=== PATIENT | female | born 1940 | race Caucasian/White ===

== ENCOUNTER 2018-04-01 08:53 | Inpatient (IN) | payer MEDICARE, OTHER ==
[~2018-04-01] VITALS: Ht 162.6 cm; Wt 47.2 kg
[~2018-04-01 08:53] MED LIST: ASPIR 8181 MG PO; B-12500 MCG PO; DILTIAZEM 24HR120 M2 PO; FOLTX TABLET1 EAC1 PO; GLUCOSAMINE &1 EAC1 PO; NOHOMEMEDICATIONS; TYLENOL325 MG PO; VITAMIN D1000 UNI1 PO; XARELTO10 MG PO
[2018-04-01 09:02] VITALS: BP 156/83
[2018-04-01] MEDS ORDERED: FISH OIL 1,001000 M2 PO (09:12)
[2018-04-01] MEDS ORDERED: CULTURELLE1 EACH PO (09:13)
[2018-04-01 09:18] LABS: ABSOLUTE BASOPHILS 0.1 thou/uL (0.0-0.2); ABSOLUTE EOSINOPHILS 0.1 thou/uL (0.0-0.7); ABSOLUTE LYMPHOCYTES 1.5 thou/uL (0.8-5.3); ABSOLUTE MONOCYTES 0.4 thou/uL (0.0-1.2); BASOPHILS 1.1 %; EOSINOPHILS 1.5 %; HEMATOCRIT 41.3 % (37.0-47.0); LYMPHOCYTES 25.1 %; MCH 31.5 pg (26.0-34.0); MCHC 33.9 g/dL (28.0-37.0); MCV 93.1 fL (80.0-100.0); MPV 8.4 fl. (7.2-11.1); NUCLEATED RBCS 0 /100WBC; PLATELET COUNT* 229 thou/uL (150-400); POLYS 66.3 %; RBC 4.43 mil/uL (4.20-5.00); RDW-CV 12.2 % (10.5-14.5); WBC 6.1 thou/uL (4.0-11.0)
[2018-04-01 09:27] LABS: CALCIUM 9.6 mg/dL (8.5-10.1); POTASSIUM 3.9 mmol/L (3.5-5.1)
[2018-04-01 09:31] LABS: APTT 29.2 Seconds (25.0-31.3)
[2018-04-01 09:45] LABS: ALBUMIN 3.6 g/dL (3.4-5.0); CK-MB MASS 2.9 ng/mL (<0.5-3.6); MAGNESIUM 2.1 mg/dL (1.8-2.4); TOTAL BILIRUBIN 0.4 mg/dL (<0.1-1.0); TOTAL PROTEIN 7.6 g/dL (6.4-8.2); TROPONIN-I LEVEL 0.07 ng/mL (<0.06)
[2018-04-01 11:05] VITALS: BP 125/74
[2018-04-01 11:14] VITALS: BP 128/65
--- NOTE | 2018-04-01 15:31 | EKG ---
[place] [address] ELECTROCARDIOGRAM REPORT Name: RICKEY QUINONES Room: [address] ADM IN [facility].#: [id number] Admission: 04/01/18 Attend Phys: Stu Jernigan Discharge: Date of : 42 Report #: [id number] THIS REPORT FOR: //name// [facility] Test Date: 2018-04-01 Test Time: 15:14:35 Pat Name: RICKEY QUINONES Department: Room: [facility] Gender: F After School Program Coordinator: ANIRUDH : 1940 Requested By: Charli Pinto Order Number: [id number] MD: Santi Alonzo Measurements Intervals [place] Rate: 66 P: 62 ND: 174 QRS: -17 QRSD: 73 T: 55 QT: 378 QTc: 396 Interpretive Statements Sinus rhythm Probable left atrial enlargement Borderline left axis deviation Possible anteroseptal infarct, old Baseline wander in lead(s) V5 Compared to ECG 08/17/2015 08:43:08 Atrial fibrillation no longer present Poor R-wave progression no longer present Electronically Signed On 04-01-2018 15:31:40 CREATIVE CONSULTANT by Santi Alonzo [email or web address] <ELECTRONICALLY SIGNED> By: Santi Alonzo MD, FACC 04/01/18 1531 1514 1514 Santi Alonzo MD, FACC /EPI
[2018-04-01 16:05] VITALS: BP 119/50
--- NOTE | 2018-04-01 16:24 | EKG ---
[place] [address] ELECTROCARDIOGRAM REPORT Name: RICKEY QUINONES Room: [address] ADM IN .R.#: [id number] Admission: 04/01/18 Attend Phys: Stu Jernigan Discharge: Date of : 42 Report #: [id number] THIS REPORT FOR: //name// [facility] ED Test Date: 2018-04-01 Test Time: 08:59:24 Pat Name: RICKEY QUINONES Department: Room: [address] Gender: F Bunk House Worker: Stu RAMIREZ : 1940 Requested By: Charli Pinto Order Number: [id number] Sudhir MD: Santi Alonzo Measurements Intervals [place] Rate: 132 P: ID: QRS: -41 QRSD: 82 T: 77 QT: 283 QTc: 420 Interpretive Statements Atrial fibrillation with rapid V-rate Left axis deviation Possible anteroseptal infarct, old ST depression, probably rate related Compared to ECG 08/17/2015 08:43:08 ST (T wave) deviation now present Poor R-wave progression no longer present Electronically Signed On 04-01-2018 16:24:33 RIM FIRE PRIMING OPERATOR by Santi Alonzo [email or web address] <ELECTRONICALLY SIGNED> By: Santi Alonzo MD, FACC 04/01/18 1624 0859 [id number] Santi Alonzo MD, FACC /EPI
[2018-04-01 20:00] VITALS: BP 129/46
[2018-04-01 23:50] VITALS: BP 131/56
[2018-04-02 04:00] VITALS: BP 120/48
[2018-04-02 07:30] VITALS: BP 106/46
[2018-04-02 11:16] VITALS: BP 106/46
[2018-04-02] MEDS ORDERED: FLECAINIDE ACET50 M2 PO (11:23)
--- NOTE | 2018-04-02 16:21 | EKG ---
[place] [address] ELECTROCARDIOGRAM REPORT Name: RICKEY QUINONES Room: [address] IN M.R.#: [id number] Admission: 04/01/18 Attend Phys: Stu Jernigan Discharge: 04/02/18 Date of : 42 Report #: [id number] THIS REPORT FOR: //name// [facility] Test Date: 2018-04-02 Test Time: 08:44:56 Pat Name: RICKEY QUINONES Department: Room: [address] Gender: F Bed Manager: : 1940 Requested By: Santi Alonzo Order Number: [id number] Sudhir MD: Felipe Gandhi Measurements Intervals [place] Rate: 65 P: 60 IA: 190 QRS: -14 QRSD: 77 T: 53 QT: 397 QTc: 413 Interpretive Statements Sinus rhythm Anteroseptal infarct, old possible Compared to ECG 04/01/2018 15:14:35 No significant changes Electronically Signed On 04-02-2018 16:21:08 ALUM PLANT OPERATOR by Felipe Gandhi [email or web address] <ELECTRONICALLY SIGNED> By: Felipe Gandhi MD, [facility] 04/02/18 1621 0844 0844 Felipe Gandhi MD, [facility] /EPI
--- NOTE | 2018-04-03 16:37 | CON ---
[address] [address] CONSULTATION Name: RICKEY QUINONES Room: [address]#: [id number] Admission: 04/01/18 Attend Phys: Stu Jernigan Discharge: 04/02/18 Date of : 42 Report #: [id number] THIS REPORT FOR: //name// CC: Ml Thao DATE OF SERVICE: 04/01/2018 INDICATION: Recurrent atrial fibrillation. HISTORY OF PRESENT ILLNESS: The patient is a very pleasant 77-year-old white female with history of paroxysmal atrial fibrillation. Two years ago, she was placed on Xarelto and diltiazem. She had maintained sinus rhythm until this morning. She had recurrence this morning. She was admitted to the hospital in atrial fibrillation. A single dose of Lopressor led to her spontaneous cardioversion to normal sinus rhythm. She is presently asymptomatic. She did have some dyspnea with her atrial fibrillation, but no chest pain. She is without other cardiac complaint. She has been anticoagulated with Xarelto on an ongoing basis. PAST MEDICAL HISTORY: 1. Mitral valve prolapse. 2. Hypertension. 3. Hyperlipidemia. 4. Mitral insufficiency. 5. Paroxysmal atrial fibrillation. 6. Mild renal insufficiency. PAST SURGICAL HISTORY: Previous cataract surgery, cholecystectomy, mastectomy. FAMILY HISTORY: Noncontributory. SOCIAL HISTORY: She is a lifelong nonsmoker. She does not drink alcohol. ALLERGIES: DIAZEPAM. CURRENT MEDICATIONS: Tylenol p.r.n., vitamin D3 400 units daily, vitamin B12 500 mcg daily, Cardizem-CD 120 mg daily, Culturelle capsules 1 daily, omega 3 fish oil 2 tablets daily, Xarelto 15 mg daily. REVIEW OF SYSTEMS: Positive for palpitations and dyspnea. She has a history of breast cancer remotely, status post mastectomy. She has dry skin, but no rashes. She wears glasses without acute visual change. Otherwise, 14-point review of systems is unremarkable. PHYSICAL EXAMINATION: [place] [address] CONSULTATION Name: RICKEY QUINONES Room: [address]#: [id number] Admission: 04/01/18 Attend Phys: Stu Jernigan Discharge: 04/02/18 Date of : 42 Report #: [id number] VITAL SIGNS: Stable. Blood pressure 128/65, pulse is 82 and regular. GENERAL: This is a pleasant, thin, white female in no distress. Mood and affect appropriate. HEENT: The patient is wearing glasses. Extraocular muscles intact. Mucous membranes are moist. NECK: Shows no jugular venous distention. There are no carotid bruits. CHEST: Reveals clear lung piña without wheezes or rales. CARDIOVASCULAR: Reveals regular rhythm, normal S1 and S2. No appreciable gallop or murmur. ABDOMEN: Reveals normal bowel sounds. The abdomen is soft and nontender. EXTREMITIES: Shows no edema. Peripheral pulses 2+ and easily palpable. A 12-lead EKG on arrival shows atrial fibrillation with rapid ventricular response rate and no acute ST or T-wave abnormalities noted. LABORATORY DATA: Reviewed. Electrolytes within normal limits. LFTs within normal limits. BUN 18, creatinine 1.0. Serum glucose 92. Troponin 0.07. NT-proBNP 217. White blood cell count 6.1, hemoglobin 14.0, platelet count 229,000. Chest x-ray shows no acute process. IMPRESSION AND RECOMMENDATIONS: 1. Paroxysmal atrial fibrillation. At this point in time, I will start flecainide 50 mg twice daily. Continue diltiazem and Xarelto at current doses. 2. Hypertension, presently stable on current regimen. 3. History of hypercholesterolemia, but no evidence of underlying vascular disease and no reason to start statin agent at this time. 4. Non-rheumatic mitral valve insufficiency, mild by recent echocardiogram as an outpatient. We will follow clinically. <ELECTRONICALLY SIGNED> By: Santi Alonzo MD, FACC 04/03/18 1637 1429 1819Santi Alonzo MD, FACC /nt
== END 2018-04-02 12:22 | disposition home or self-care (01) | DRG 309 ==
LOC: M.ERS 08:53 → M.TBA-ER 10:09 → M.2W 10:09
PROVIDERS: Family Medicine; ADMIT Internal Medicine
DX: I48.0 Paroxysmal atrial fibrillation (principal); D68.69 Other thrombophilia; I34.0 Nonrheumatic mitral (valve) insufficiency; E78.5 Hyperlipidemia, unspecified; I10 Essential (primary) hypertension; E78.00 Pure hypercholesterolemia, unspecified; M81.0 Age-related osteoporosis without current pathological fracture; Z98.41 Cataract extraction status, right eye; Z98.42 Cataract extraction status, left eye; Z90.49 Acquired absence of other specified parts of digestive tract; Z85.3 Personal history of malignant neoplasm of breast; Z90.11 Acquired absence of right breast and nipple; Z79.899 Other long term (current) drug therapy; Z88.8 Allergy status to other drugs, medicaments and biological substances

== ENCOUNTER 2018-06-13 14:26 | Emergency (ER) | payer MEDICARE, OTHER ==
[~2018-06-13] VITALS: Ht 165.1 cm; Wt 54.9 kg
[~2018-06-13 14:26] MED LIST changes: +CULTURELLE1 EACH PO; +FISH OIL 1,001000 M2 PO; +FLECAINIDE ACET50 M2 PO
[2018-06-13 14:47] LABS: ABSOLUTE EOSINOPHILS 0.1 thou/uL (0.0-0.7); ABSOLUTE LYMPHOCYTES 1.9 thou/uL (0.8-5.3); ABSOLUTE MONOCYTES 0.3 thou/uL (0.0-1.2); ABSOLUTE NEUTROPHILS 2.3 thou/uL (1.6-8.1); BASOPHILS 0.7 %; EOSINOPHILS 1.9 %; HEMATOCRIT 40.1 % (37.0-47.0); HEMOGLOBIN 13.6 gm/dL (12.0-15.0); LYMPHOCYTES 40.7 %; MCH 31.2 pg (26.0-34.0); MCHC 33.9 g/dL (28.0-37.0); MCV 92.2 fL (80.0-100.0); MONOCYTES 6.3 %; MPV 8.6 fl. (7.2-11.1); NUCLEATED RBCS 0 /100WBC; PLATELET COUNT* 196 thou/uL (150-400); POLYS 50.4 %; RBC 4.35 mil/uL (4.20-5.00); RDW-CV 12.5 % (10.5-14.5); WBC 4.6 thou/uL (4.0-11.0)
[2018-06-13 14:51] LABS: ANION GAP 9 mmol/L (7-16); BUN 19 mg/dL (7-18); CALCIUM 9.6 mg/dL (8.5-10.1); CHLORIDE 100 mmol/L (98-107); CO2 26 mmol/L (21-32); CREATININE 1.1 mg/dL (0.6-1.3); GLUCOSE 110 mg/dL (70-99); POTASSIUM 3.9 mmol/L (3.5-5.1); SODIUM 135 mmol/L (136-145)
[2018-06-13 15:03] LABS: ALBUMIN 3.8 g/dL (3.4-5.0); ALKALINE PHOSPHATASE 129 U/L (46-116); NT-PRO BRAIN NAT PEPTIDE 116 pg/mL (<300); SGOT 18 U/L (15-37); SGPT 20 U/L (30-65); TOTAL BILIRUBIN 0.3 mg/dL (<0.1-1.0); TOTAL PROTEIN 7.3 g/dL (6.4-8.2); TROPONIN-I LEVEL <0.06 ng/mL (<0.06)
[2018-06-13 15:57] VITALS: BP 162/59
--- NOTE | 2018-06-14 11:48 | EKG ---
[place] [address] ELECTROCARDIOGRAM REPORT Name: RICKEY QUINONES Room: [facility]#: [id number] Admission: 06/13/18 Attend Phys: Discharge: 06/13/18 Date of : 42 Report #: [id number] THIS REPORT FOR: //name// [facility] ED Test Date: 2018-06-13 Test Time: 14:32:29 Pat Name: RICKEY QUINONES Department: Room: Gender: F Deputy Clerk Of Superior Court: Laz VELAZQUEZ : 1940 Requested By: Chadwick Singh Order Number: [id number] MD: Anmol Vang Measurements Intervals [place] Rate: 74 P: 68 VT: 199 QRS: -19 QRSD: 86 T: 69 QT: 381 QTc: 423 Interpretive Statements Sinus rhythm Left atrial enlargement Borderline left axis deviation Compared to ECG 04/02/2018 08:44:56 Atrial abnormality now present Myocardial infarct finding no longer present Electronically Signed On 06-14-2018 11:48:26 DAT INSTRUCTOR by Anmol Vang [email or web address] <ELECTRONICALLY SIGNED> By: Anmol Vang MD, [facility] 06/14/18 1148 1432 1432 Anmol Vang MD, [facility] /EPI
--- NOTE | 2018-06-14 11:48 | EKG ---
[place] [address] ELECTROCARDIOGRAM REPORT Name: RICKEY QUINONES [id number] Admission: 06/13/18 Attend Phys: Discharge: 06/13/18 Date of : 42 Report #: [id number] THIS REPORT FOR: //name// [facility] ED Test Date: 2018-06-13 Test Time: 15:37:16 Pat Name: RICKEY QUINONES Department: Room: Gender: F Drop Wire Aligner: NUVIA : 1940 Requested By: Chadwick Singh Order Number: [id number] MD: Anmol Vang Measurements Intervals [place] Rate: 69 P: 66 LA: 189 QRS: -27 QRSD: 83 T: 53 QT: 393 QTc: 421 Interpretive Statements Sinus rhythm Ventricular premature complex Left atrial enlargement Borderline left axis deviation Probable anteroseptal infarct, old Compared to ECG 04/02/2018 08:44:56 Ventricular premature complex(es) now present Atrial abnormality now present Myocardial infarct finding still present Electronically Signed On 06-14-2018 11:48:33 SERVICES MGR by Anmol aVng [email or web address] <ELECTRONICALLY SIGNED> By: Anmol Vang MD, [facility] 06/14/18 1148 1537 1537 Anmol Vang MD, [facility] /EPI
== END 2018-06-13 15:58 | disposition home or self-care (01) ==
LOC: M.ERS 14:26
PROVIDERS: Nurse Practitioner Family
DX: R06.00 Dyspnea, unspecified (principal); M81.0 Age-related osteoporosis without current pathological fracture; F41.9 Anxiety disorder, unspecified; I48.91 Unspecified atrial fibrillation; Z85.3 Personal history of malignant neoplasm of breast; Z90.11 Acquired absence of right breast and nipple; Z90.49 Acquired absence of other specified parts of digestive tract; Z88.4 Allergy status to anesthetic agent

== ENCOUNTER 2020-01-06 11:07 | Emergency (ER) | payer MEDICARE, OTHER ==
[~2020-01-06] VITALS: Ht 165.1 cm; Wt 46.4 kg
[2020-01-06 11:46] LABS: ABSOLUTE EOSINOPHILS 0.1 thou/uL (0.0-0.7); ABSOLUTE LYMPHOCYTES 1.3 thou/uL (0.8-5.3); ABSOLUTE MONOCYTES 0.3 thou/uL (0.0-1.2); ABSOLUTE NEUTROPHILS 2.5 thou/uL (1.6-8.1); BASOPHILS 1.2 %; EOSINOPHILS 1.7 %; HEMATOCRIT 41.8 % (37.0-47.0); HEMOGLOBIN 14.2 gm/dL (12.0-15.0); LYMPHOCYTES 30.3 %; MCH 31.5 pg (26.0-34.0); MCV 92.5 fL (80.0-100.0); MONOCYTES 6.3 %; MPV 8.2 fl. (7.2-11.1); NUCLEATED RBCS 0 /100WBC; PLATELET COUNT* 226 thou/uL (150-400); POLYS 60.5 %; RBC 4.52 mil/uL (4.20-5.00); RDW-CV 12.7 % (10.5-14.5); WBC 4.1 thou/uL (4.0-11.0)
[2020-01-06 11:53] LABS: CALCIUM 9.5 mg/dL (8.5-10.1); CREATININE 1.1 mg/dL (0.6-1.3); POTASSIUM 3.8 mmol/L (3.5-5.1)
[2020-01-06 12:03] LABS: ALBUMIN 4.2 g/dL (3.4-5.0); TOTAL BILIRUBIN 0.4 mg/dL (<0.1-1.0); TOTAL PROTEIN 7.7 g/dL (6.4-8.2)
[2020-01-06] MEDS ORDERED: STOOL SOFTENER240 MG PO (12:06)
[2020-01-06 14:40] VITALS: BP 143/59
--- NOTE | 2020-01-06 15:24 | EKG ---
[place] [address] ELECTROCARDIOGRAM REPORT Name: RICKEY QUINONES Room: [facility]#: [id number] Admission: 01/06/20 Attend Phys: Discharge: 01/06/20 Date of : 42 Date of Service: 01/06/20 1124 Report #: [id number] THIS REPORT FOR: //name// [facility] ED Test Date: 2020-01-06 Test Time: 11:24:00 Pat Name: RICKEY QUINONES Department: Room: Gender: Hand Tile Maker: LEONOR : 1940 Requested By: Mateus Banerjee Order Number: [id number] MD: Felipe Gandhi Measurements Intervals [place] Rate: 67 P: 73 PA: 183 QRS: -29 QRSD: 91 T: 70 QT: 388 QTc: 410 Interpretive Statements Sinus rhythm Probable left atrial enlargement Borderline left axis deviation Anteroseptal infarct, age indeterminate Compared to ECG 06/13/2018 15:37:16 Ventricular premature complex(es) no longer present Myocardial infarct finding still present Electronically Signed On 01-06-2020 15:24:37 CDT by Felipe Gandhi [email or web address] <ELECTRONICALLY SIGNED> By: Felipe Gandhi MD, FAC 01/06/20 1524 1124 1124 Felipe Gandhi MD, FAC /EPI
== END 2020-01-06 14:41 | disposition home or self-care (01) ==
LOC: M.ERS 11:07
PROVIDERS: Emergency Medicine Emergency Medical Services
DX: R06.00 Dyspnea, unspecified (principal); I34.1 Nonrheumatic mitral (valve) prolapse; I48.91 Unspecified atrial fibrillation; Z79.899 Other long term (current) drug therapy; Z88.8 Allergy status to other drugs, medicaments and biological substances

== ENCOUNTER → 2020-01-22 | Outpatient (CLI) | payer MEDICARE, OTHER ==
[~2020-01-22] MED LIST changes: +STOOL SOFTENER240 MG PO
--- NOTE | 2020-01-22 17:23 | CARDNUC ---
[place] [address] CARDIAC NUCLEAR IMAGING REPORT Name: RICKEY QUINONES Room: [facility]#: [id number] Admission: 01/22/20 Attend Phys: Santi Alonzo, Discharge: Date of : 42 Date of Service: 01/22/20 1723 Report #: [id number] THIS REPORT FOR: cc: Ml Rinaldi MD, Allison Louise MD Liston, Michael J. MD [facility] ~ APPROVED REPORT Study performed: 01/22/2020 10:46:54 Exam: Nuclear Stress Test Indication: Chest pain, Dyspnea Patient Location: Out-Patient Stress Tech: Subha Swan Stress Nurse: Kyara Pabon RN Ht: 5 ft 4 in Wt: 104 lbs BSA: 1.48 m2 BMI: 17.84 Medical History Medical History: Atrial Fibrillation, CHF, HTN Medications: xarelto, diltiazem Allergies: diazepam Cardiac Risk Factors: Age, HTN Exercise History: Sedentary Stress Test Details Stress Test: Pharmacologic stress testing performed using 0.4 mg of regadenoson per 5 mL given IV over 10 seconds. Reason for pharmacologic stress test: physical limitation. HR Resting HR: 60 bpm Max Heart Rate (APMHR): 142 bpm Max HR Achieved: 106 bpm Target HR (85% APMHR): 120 bpm % of APMHR: 74 Recovery HR: 86 bpm BP Resting BP: 145/74 mmHg Max BP: 144/58 mmHg ECG Resting ECG: Sinus Rhythm Stress ECG: [place] [address] CARDIAC NUCLEAR IMAGING REPORT Name: RICKEY QUINONES Room: [facility]#: [id number] Admission: 01/22/20 Attend Phys: Santi Alonzo, Discharge: Date of : 42 Date of Service: 01/22/20 1723 Report #: [id number] Change: None Arrhythmia: None Recovery ECG: Sinus Rhythm Recovery ST Change: None Recovery Arrhythmia: None Clinical Reason for Termination: Completed protocol The patient tolerated Lexiscan infusion without significant cardiac symptoms. Nurse Comments pt unsteady on her feet Stress ECG Conclusion The baseline twelve-lead EKG shows sinus rhythm without significant ST segment or T wave abnormality. EKGs obtained during and post Lexiscan infusion show sinus rhythm and sinus tachycardia with no significant ST segment or T wave changes when compared to baseline. There were no stress-induced arrhythmias. NM EXAM: Myocardial Perfusion REST/STRESS Imaging Protocol: Rest Tc-99m/Stress Tc-99m 1 day Resting Data Rest SPECT myocardial perfusion imaging was performed in supine position 30 minutes following the intravenous injection of 10.0 mCi of Tc-99m Sestamibi. Time of rest injection: 08:50 The images were gated to evaluate regional wall motion and calculate left ventricular ejection fraction. Administration Route: IV Administration Site: Left Arm Pharmacologic Stress Pharmacologic stress test was performed by injecting Regadenoson 0.4 mg IV push followed by the intravenous injection of 30.9 mCi of Tc-99m Sestamibi. Time of stress injection: 10:35 Administration Route: IV Administration Site: Left Arm Heart Rate at time of stress injection: 106 bpm. Gated Stress SPECT was performed 50 minutes after stress injection. The images were gated to evaluate regional wall motion and calculate left [place] [address] CARDIAC NUCLEAR IMAGING REPORT Name: RICKEY QUINONES Room: [facility]#: [id number] Admission: 01/22/20 Attend Phys: Santi Alonzo, Discharge: Date of : 42 Date of Service: 01/22/20 1723 Report #: [id number] Prone imaging was performed. Study Quality Study: Good Artifact: No artifact Study Data At rest, the left ventricular ejection fraction was 73%.. Post stress, the left ventricular ejection was 74%.. TID = 1.03. Perfusion Perfusion images obtained at rest and post Lexiscan stress showed uniform uptake of the radioisotope throughout the myocardium. Wall Motion Normal left ventricular wall motion. Nuclear Conclusion ECG Findings: negative for ischemia Clinical Findings: negative for ischemia Nuclear Findings: negative for ischemia Exercise Capacity: not assessed Left Ventricular Function: normal Risk Study: low Perfusion study show no defect to suggest infarct or ischemia. Left ventricular systolic function appears normal on gated studies. This is a low risk study. <Conclusion> The baseline twelve-lead EKG shows sinus rhythm without significant ST segment or T wave abnormality. EKGs obtained during and post Lexiscan infusion show sinus rhythm and sinus tachycardia with no significant ST segment or T wave changes when compared to baseline. There were no stress-induced arrhythmias. <ELECTRONICALLY SIGNED> By: Santi Alonzo MD, FACC 01/22/20 1723 22 172 Santi Alonzo MD, FACC /INF
== END ==
LOC: M.NUC 01-18 12:37
PROVIDERS: ATTEND Internal Medicine Cardiovascular Disease
DX: R00.0 Tachycardia, unspecified (principal)

== ENCOUNTER → 2020-12-23 | Outpatient (CLI) | payer MEDICARE, OTHER ==
[2020-12-23 17:25] LABS: CALCIUM 10.1 mg/dL (8.5-10.1); CREATININE 1.1 mg/dL (0.6-1.3); POTASSIUM 3.8 mmol/L (3.5-5.1)
== END ==
LOC: M.RAD 16:25
PROVIDERS: ATTEND Registered Nurse
DX: I70.0 Atherosclerosis of aorta (principal); I50.32 Chronic diastolic (congestive) heart failure; R06.00 Dyspnea, unspecified